=== PATIENT | female | born 1955 | race Two or more races ===

== ENCOUNTER 2021-04-06 07:59 | Emergency (ER) | payer BC, MEDICAID ==
[~2021-04-06] VITALS: Ht 154.9 cm; Wt 76.7 kg
[2021-04-06 08:58] VITALS: BP 152/68
[2021-04-06 10:18] LABS: Urine Bacteria MANY /hpf (None Seen); Urine Blood Negative /uL (Negative); Urine Mucus FEW (None Seen); Urine Specific Gravity 1.021 (1.001-1.035); Urine WBC 47 /hpf (0 - 5)
[2021-04-06] MEDS ORDERED: cefTRIAXone 1GM/50ML D5W 50 ML IV ONE (10:45)
[2021-04-06] MEDS ORDERED: ACETAMINOPHEN 325 MG TAB PO ONE (10:45)
== END 2021-04-06 11:58 | disposition home or self-care (01) ==
LOC: ER 07:59
DX: S39.012A Strain of muscle, fascia and tendon of lower back, initial encounter (principal); S29.012A Strain of muscle and tendon of back wall of thorax, initial encounter; N39.0 Urinary tract infection, site not specified; E11.65 Type 2 diabetes mellitus with hyperglycemia; E78.5 Hyperlipidemia, unspecified; R94.31 Abnormal electrocardiogram [ECG] [EKG]; X50.0XXA Overexertion from strenuous movement or load, initial encounter; Y93.89 Activity, other specified; Y92.89 Other specified places as the place of occurrence of the external cause; Y99.8 Other external cause status
CPT/HCPCS: 72070; 72100; 81001; 93005; 96365; 99285; J0696

== ENCOUNTER 2025-03-01 07:17 | Emergency (ER) | payer BC, MEDICAID ==
[~2025-03-01] VITALS: Ht 154.9 cm; Wt 76.8 kg
[2025-03-01 07:19] VITALS: BP 177/74; PULSE 81; RESP 18; TEMP 98.6; O2SAT 99
--- NOTE | 2025-03-01 07:46 | ED.PDOC ---
Musculoskeletal HPI Comments This is a 69 year old female presenting to the ED with chief complaint of foot wound. Patient reports that she has been dealing with a wound to her left foot between the 4th and 5th toes for the past month, worsening in pain and redness over time. Patient relays that she is diabetic and currently on Metformin and Insulin. Patient denies any fever, chills, leg pain, chest pain, or SOB. Chief Complaint: Lower Extremity Time Seen by MD: 07:44 Primary Care Provider: RAJ Reviewed Notes: Nurses Notes, Medications, Allergies Allergies: Coded Allergies: NO KNOWN ALLERGIES (Unverified , 04/06/21) Home Meds Active Scripts Clindamycin HCl (Clindamycin Hydrochloride) 300 Mg Cap, 300 MG PO TID for 7 Days, #21 CAP Prov:DRU GARCIA MD 03/01/25 Amoxicillin Trihydrate (Amoxicillin) 500 Mg Tab, 1 TAB PO TID for 7 Days, #21 TAB Prov:DRU GARCIA MD 03/01/25 Information Source: Patient Mode of Arrival: Ambulatory Location: Left Extremity Location: Foot Timing: Days Prehospital treatment: None Severity: Moderate Able to Move Extremity: Yes Bear Weight: Fully Pain: Moderate Mechanism: Penetrating Trauma Circumstances: Unknown Onset of Symptoms: Spontaneous Symptoms: Pain, Erythema DVT Risk Factors: NONE Last Tetanus: Unknown Past Medical History PAST MEDICAL HISTORY: DM, High Lipids, HTN Surgical History: ORDER ENTRY CLERK History: No Pertinent ORDER ENTRY CLERK History Family History Family History: Unknown Social History Smoker: Non-Smoker Alcohol: Denies ETOH Use Drugs: Denies Drug Use Lives In: Home Constitutional: denies: chills, diaphoresis, fatigue, fever, malaise, sweats, weakness, others EENTM: denies: blurred vision, double vision, ear bleeding, ear discharge, ear drainage, ear pain, ear ringing, eye pain, eye redness, hearing loss, mouth pain, mouth swelling, nasal discharge, nose bleeding, nose congestion, nose pain, photophobia, tearing, throat pain, throat swelling, voice changes, others Respiratory: denies: cough, hemoptysis, orthopnea, SOB at rest, shortness of breath, SOB with excertion, stridor, wheezing, others Cardiovascular: denies: chest pain, dizzy spells, diaphoresis, Dyspnea on exertion, edema, irregular heart beat, left arm pain, lightheadedness, palpitations, PND, syncope, others Gastrointestinal: denies: abdomen distended, abdominal pain, blood streaked bowels, constipated, diarrhea, dysphagia, difficulty swallowing, hematemesis, melena, nausea, poor appetite, poor fluid intake, rectal bleeding, rectal pain, vomiting, others Genitourinary: denies: abnormal vagina bleeding, burning, dyspareunia, dysuria, flank pain, frequency, hematuria, incontinence, pain, , vagina discharge, urgency, others Neurological: denies: dizziness, fainting, headache, left sided numbness, left sided weakness, numbness, paresthesia, pre-existing deficit, right sided numbness, right sided weakness, seizure, speech problems, tingling, tremors, weakness, others Musculoskeletal: denies: back pain, gout, joint pain, joint swelling, muscle pain, muscle stiffness, neck pain, others Integumetry: reports: wounds; denies: bruises, change in color, change in hair/nails, dryness, laceration, lesions, lumps, rash, others Allergic/Immunocompromised: denies: Difficulty Healing, Frequent Infections, Hives, Itching, others Hematologic/Lymphatic: denies: anemia, blood clots, easy bleeding, easy bruising, swollen glands, others Endocrine: denies: excessive hunger, excessive sweating, excessive thirst, excessive urination, flushing, intolerance to cold, intolerance to heat, unexplained weight gain, unexplained weight loss, others Psychiatric: denies: anxiety, bipolar disorder, depression, hopeless, panic disorder, schizophrenia, sleepless, suicidal, others All Other Systems: Reviewed and Negative Physical Exam General Appearance: Moderate Distress, Normal HEENT: Normal ENT Inspection, Pharynx Normal, TMs Normal Neck: Full Range of Motion, Non-Tender, Normal, Normal Inspection Respiratory: Chest Non-Tender, Lungs Clear, No Accessory Muscle Use, No Respiratory Distress, Normal Breath Sounds Cardiovascular: No Edema, No JVD, No Murmur, No Gallop, Normal Peripheral Pulses, Regular Rate/Rhythm Breast Exam: Deferred Gastrointestinal: No Organomegaly, Non Tender, No Pulsatile Mass, Normal Bowel Sounds, Soft Genitalia: Deferred Pelvic: Deferred Rectal: Deferred Extremities: No calf tenderness, Normal capillary refill, Normal inspection, Normal range of motion, Non-tender, No pedal edema Musculoskeletal : Apperance: Normal Neurologic: Alert, senior data scientist II-XII nml as Tested, No Motor Deficits, Normal Affect, Normal Mood, No Sensory Deficits Cerebellar Function: Normal Reflexes: Normal Skin: Dry, Normal Color, Warm, Wounds (Redness left 5th toe) Peripheral Pulses: 3+ Radial (R), 3+ Radial (L) Lymphatic: No Adenopathy Was a procedure done? Was a procedure done?: No Differential Diagnosis EXT Differential Diagnosis: Cellulitis X-Ray, Labs, Meds, VS Vital Signs Date Time Temp Pulse Resp B/P (MAP) Pulse Ox O2 Delivery O2 Flow Rate FiO2 03/01/25 07:19 98.6 81 18 177/74 99 98.6 Patient alert. Vitals stable. Came in because of swelling with redness of her left foot. Ambulating. Blood pressure slightly elevated. Was given clonidine. Infection of the foot. X-ray of the foot does not show any acute process. Was given prescription of amoxicillin clindamycin antibiotic. [facility] we will make appointment. Explained to the patient. Was told to follow up with her primary care physician. Was told to come back if there is any problem. [place] [id number] Ph: [phone] DIAGNOSTIC IMAGING Diagnostic Imaging Report : [id number] Signed PATIENT: SOHAIL XIE ACCT: [id number] UNIT: [id number] : 1955 LOC: ER ROOM / BED: / AGE / SEX: 69 / F ADM STATUS: REG ER SERVICE [id number] ORDERING PHYSICIAN: DRU GARCIA MD PROCEDURE(s): LFOT2 - L FOOT 2 VIEW XRAY REASON: osteo ORDER NUMBER(s): [id number], ACCESSION NUMBER(s): [id number] CLINICAL INDICATION: osteo TECHNIQUE: XY L FOOT 2 VIEW XRAY Comparison: None FINDINGS/IMPRESSION: : There is no evidence of acute fracture or dislocation. Soft tissues are unremarkable. ATED BY: TAVO MOSQUERA MD DICTATED DATE/TIME: 03/01/25823 SIGNED BY: TAVO MOSQUERA MD SIGNED DATE/TIME: 03/01/25 0824 CC: Images Reviewed?: Images reviewed and evaluated by me Time of 1ST Reevaluation: 08:42 Reevaluation 1ST: Unchanged Patient Education/Counseling: Diagnosis, Treatment Family Education/Counseling: No Family Present Departure 1 Departure Time of Disposition: 08:18 Impression: Primary Impression: Hypertensive urgency Additional Impression: Diabetic foot Disposition: 01 HOME / SELF CARE / HOMELESS Condition: Good e-Prescriptions Clindamycin HCl (Clindamycin Hydrochloride) 300 Mg Cap 300 MG PO TID for 7 Days, #21 CAP Prov: DRU GARCIA MD 03/01/25 Amoxicillin Trihydrate (Amoxicillin) 500 Mg Tab 1 TAB PO TID for 7 Days, #21 TAB Prov: DRU GARCIA MD 03/01/25 Discharged With: Self Critical Care Note Critical Care Time?: No Stability Stability form required: No Heart Score Heart Score: Heart Score Response (Comments) Value History N/A 0 EKG N/A 0 Age N/A 0 Risk Factors N/A 0 Troponin N/A 0 Total 0 I personally scribed for DRU GARCIA MD ([email or web address]) on 03/01/25 at 07:46. Electronically submitted by Bry Sandoval ([email or web address]). I personally scribed for DRU GARCIA MD ([email or web address]) on 03/01/25 at 08:27. Electronically submitted by Bry Sandoval ([email or web address]). DRU GARCIA MD Mar 01, 2025 07:46
[2025-03-01] MEDS ORDERED: CLIN-203 PO (08:20)
[2025-03-01] MEDS ORDERED: AMOX500T3 PO (08:20)
--- NOTE | 2025-03-01 08:26 | DVH ---
CLINICAL INDICATION: osteo TECHNIQUE: XY L FOOT 2 VIEW XRAY Comparison: None FINDINGS/IMPRESSION: : There is no evidence of acute fracture or dislocation. Soft tissues are unremarkable.
== END 2025-03-01 11:41 | disposition home or self-care (01) ==
LOC: ER 07:19
DX: I16.0 Hypertensive urgency (principal); E11.621 Type 2 diabetes mellitus with foot ulcer; E11.9 Type 2 diabetes mellitus without complications; I10 Essential (primary) hypertension; E78.5 Hyperlipidemia, unspecified; Z79.899 Other long term (current) drug therapy; Z79.84 Long term (current) use of oral hypoglycemic drugs; Z79.4 Long term (current) use of insulin
CPT/HCPCS: 73620

== ENCOUNTER 2025-04-07 15:48 | Emergency (ER) | payer OTHER, MEDICAID ==
[~2025-04-07] VITALS: Ht 154.9 cm; Wt 74.8 kg
[~2025-04-07 15:48] MED LIST: AMOX500T3 PO; CLIN-203 PO
[2025-04-07 15:52] VITALS: BP 157/81; PULSE 73; RESP 12; TEMP 97.8; O2SAT 98
--- NOTE | 2025-04-07 17:44 | ED.PDOC ---
History of Present Illness HPI Comments Arabic-speaking F presents with c/c of left foot wound, with associated pain. Significant history of DM and HTN. Patient endorses on 2 month history of wound, with no improvement following completion of multiple antibiotic course. She comments on being referred to ED after being evaluated for wound, again, at urgent care, earlier, due to wound not healing. No further acute symptoms reported. Chief Complaint: Wound Check Time Seen by MD: 17:10 Primary Care Provider: RAJ Allergies: Coded Allergies: NO KNOWN ALLERGIES (Unverified , 04/06/21) Home Meds Active Scripts Clindamycin HCl (Clindamycin Hydrochloride) 300 Mg Cap, 300 MG PO TID for 7 Days, #21 CAP Prov:DRU GARCIA MD 03/01/25 Amoxicillin Trihydrate (Amoxicillin) 500 Mg Tab, 1 TAB PO TID for 7 Days, #21 TAB Prov:DRU GARCIA MD 03/01/25 Mode of Arrival: Ambulatory Past Medical History PAST MEDICAL HISTORY: DM, High Lipids, HTN Surgical History: CLASSICS PROFESSOR History: No Pertinent CLASSICS PROFESSOR History Family History Family History: Unknown Social History Smoker: Non-Smoker Alcohol: Denies ETOH Use Drugs: Denies Drug Use Lives In: Home All Other Systems: Reviewed and Negative (Comprehensive review of systems are negative unless stated in HPI) Physical Exam General Appearance: Moderate Distress, Normal HEENT: Normal ENT Inspection, Pharynx Normal, TMs Normal Neck: Full Range of Motion, Non-Tender, Normal, Normal Inspection Respiratory: Chest Non-Tender, Lungs Clear, No Accessory Muscle Use, No Respiratory Distress, Normal Breath Sounds Cardiovascular: No Edema, No JVD, No Murmur, No Gallop, Normal Peripheral Pulses, Regular Rate/Rhythm Breast Exam: Deferred Gastrointestinal: No Organomegaly, Non Tender, No Pulsatile Mass, Normal Bowel Sounds, Soft Genitalia: Deferred Pelvic: Deferred Rectal: Deferred Extremities: No calf tenderness, Normal capillary refill, Normal inspection, Normal range of motion, Non-tender, No pedal edema Musculoskeletal : Apperance: Normal Neurologic: Alert, correctional supervising cook II-XII nml as Tested, No Motor Deficits, Normal Affect, Normal Mood, No Sensory Deficits Cerebellar Function: Normal Reflexes: Normal Skin: Dry, Normal Color, Warm, Wounds (Left 5th toe redness) Peripheral Pulses: 3+ Radial (R), 3+ Radial (L) Lymphatic: No Adenopathy Was a procedure done? Was a procedure done?: No Differential Dx Considerations may include: Unhealing diabetic wound, MRSA, antibiotic resilient infection, cellulitis, among others X-Ray, Labs, Meds, VS Vital Signs Date Time Temp Pulse Resp B/P (MAP) Pulse Ox O2 Delivery O2 Flow Rate FiO2 04/07/25 15:52 97.8 73 12 157/81 98 97.8 Patient alert. Came in because of left foot redness. Vitals stable. Answering questions. Good vascular. No distress. Mild redness. No acute process. Was given prescription of amoxicillin clindamycin antibiotic. Was told to follow up with her primary care physician. Was told to come back if there is any problem. Time of 1ST Reevaluation: 17:50 Reevaluation 1ST: Improved Patient Education/Counseling: Diagnosis, Treatment Family Education/Counseling: No Family Present SEPSIS Sepsis Screen Date sepsis recognized/suspect: Apr 07, 2025 Time Sepsis recognized/suspect: 1554 Recent Procedure: No On Antibiotic Therapy: No Respiratory Rate >20: No Heart Rate >90: No Temp<36 C (96.8 F) or >38.3 C: No SBP <90 or MAP <65 mmHG: No New Acute Mental Status Change: No Is the patient on CPAP, BIPAP,: No Vital Signs Date Time Temp Pulse Resp B/P (MAP) Pulse Ox O2 Delivery O2 Flow Rate FiO2 04/07/25 15:52 97.8 73 12 157/81 98 97.8 Departure 1 Departure Time of Disposition: 17:55 Impression: Primary Impression: Cellulitis Qualified Codes: L03.116 - Cellulitis of left lower limb Disposition: 01 HOME / SELF CARE / HOMELESS Condition: Good e-Prescriptions Clindamycin Hcl (Clindamycin Hcl) 300 Mg Cap 1 CAP PO TID for 10 Days, #30 CAP Prov: DRU GARCIA MD 04/07/25 Amoxicillin Trihydrate (Amoxicillin) 500 Mg Tab 1 TAB PO TID for 10 Days, #30 TAB Prov: DRU GARCIA MD 04/07/25 Discharged With: Self Critical Care Note Critical Care Time?: No Stability Stability form required: No Heart Score Heart Score: Heart Score Response (Comments) Value History N/A 0 EKG N/A 0 Age N/A 0 Risk Factors N/A 0 Troponin N/A 0 Total 0 I personally scribed for DRU GARCIA MD ([email or web address]) on 04/07/25 at 17:44. Electronically submitted by Gian Short ([email or web address]). DRU GARCIA MD Apr 07, 2025 17:44
[2025-04-07] MEDS ORDERED: CLIN1CAP70 PO (17:56)
== END 2025-04-07 17:56 | disposition home or self-care (01) ==
LOC: ER 15:48
DX: L03.116 Cellulitis of left lower limb (principal); I10 Essential (primary) hypertension; E11.9 Type 2 diabetes mellitus without complications

== ENCOUNTER 2025-04-27 10:46 | Emergency (ER) | payer OTHER, MEDICAID ==
[~2025-04-27] VITALS: Ht 154.9 cm; Wt 74.3 kg
[~2025-04-27 10:46] MED LIST changes: +CLIN1CAP70 PO
--- NOTE | 2025-04-27 11:16 | ED.PDOC ---
Eye-HPI HPI Comments A 69 YEAR OLD FEMALE PRESENTS TO THE ED WITH COMPLAINT OF SORE THROAT. PATIENT STATES SHE HAS BEEN EXPERIENCING A SORE THROAT THAT IS WORSE WHEN SWALLOWING FOR THE PAST 3 DAYS. PATIENT DENIES FEVER, CHILLS, SHORTNESS OF BREATH, CHEST PAIN, ABDOMINAL PAIN, NAUSEA, VOMITING, HEADACHE, OR OTHER COMPLAINTS. NO OTHER SYMPTOMS OR MODIFYING FACTORS AT THIS TIME. PATIENT IS ALERT, ORIENTED X 4, AND HAS STEADY GAIT. Chief Complaint: Sore Throat Time Seen by MD: 10:53 Primary Care Provider: ANTHONY Reviewed Notes: Nurses Notes, Medications, Allergies Allergies: Coded Allergies: NO KNOWN ALLERGIES (Unverified , 04/06/21) Home Meds Active Scripts Ibuprofen (Ibuprofen) 600 Mg Tab, 1 TAB PO TID, #30 TAB Prov:FELIBERTO NOVAK 04/27/25 Azithromycin (Azithromycin) 500 Mg Tab, 1 TAB PO DAILY, #5 TAB Prov:FELIBERTO NOVAK 04/27/25 Clindamycin Hcl (Clindamycin Hcl) 300 Mg Cap, 1 CAP PO TID for 10 Days, #30 CAP Prov:DRU GARCIA MD 04/07/25 Amoxicillin Trihydrate (Amoxicillin) 500 Mg Tab, 1 TAB PO TID for 10 Days, #30 TAB Prov:DRU GARCIA MD 04/07/25 Clindamycin HCl (Clindamycin Hydrochloride) 300 Mg Cap, 300 MG PO TID for 7 Days, #21 CAP Prov:DRU GARCIA MD 03/01/25 Amoxicillin Trihydrate (Amoxicillin) 500 Mg Tab, 1 TAB PO TID for 7 Days, #21 TAB Prov:DRU GARCIA MD 03/01/25 Information Source: Patient Mode of Arrival: Ambulatory Timing: Days Duration: Since onset Prehospital treatment: None Quality: Pain, Red Lids: Normal Conjunctiva: Normal Cornea: Normal Pupils: Normal EOM: Normal Fundus: Normal Slit lamp exam: Normal Anterior chamber: Normal Mouth Location: Pharynx Mouth: Normal ENT Ear Exam: Normal, Normal, Normal Nose: Normal Sinuses: Normal Oropharynx: Tonsillar hypertrophy, Red Onset: Spontaneous Throat Exposed to: None History of: None Last Tetanus: Unknown Modifying factors: Nothing Associated signs and symptoms: Sore Throat Past Medical History PAST MEDICAL HISTORY: DM, High Lipids, HTN Surgical History: ACADEMIC PHYSICIAN History: No Pertinent ACADEMIC PHYSICIAN History Family History Family History: Reviewed,noncontributory to illness Social History Smoker: Non-Smoker Alcohol: Denies ETOH Use Drugs: Denies Drug Use Lives In: Home Constitutional: denies: chills, diaphoresis, fatigue, fever, malaise, sweats, weakness, others EENTM: reports: throat pain, throat swelling; denies: blurred vision, double vision, ear bleeding, ear discharge, ear drainage, ear pain, ear ringing, eye pain, eye redness, hearing loss, mouth pain, mouth swelling, nasal discharge, nose bleeding, nose congestion, nose pain, photophobia, tearing, voice changes, others Respiratory: denies: cough, hemoptysis, orthopnea, SOB at rest, shortness of breath, SOB with excertion, stridor, wheezing, others Cardiovascular: denies: chest pain, dizzy spells, diaphoresis, Dyspnea on exertion, edema, irregular heart beat, left arm pain, lightheadedness, palpitations, PND, syncope, others Gastrointestinal: denies: abdomen distended, abdominal pain, blood streaked bowels, constipated, diarrhea, dysphagia, difficulty swallowing, hematemesis, melena, nausea, poor appetite, poor fluid intake, rectal bleeding, rectal pain, vomiting, others Genitourinary: denies: abnormal vagina bleeding, burning, dyspareunia, dysuria, flank pain, frequency, hematuria, incontinence, pain, , vagina discharge, urgency, others Neurological: denies: dizziness, fainting, headache, left sided numbness, left sided weakness, numbness, paresthesia, pre-existing deficit, right sided numbness, right sided weakness, seizure, speech problems, tingling, tremors, weakness, others Musculoskeletal: denies: back pain, gout, joint pain, joint swelling, muscle pain, muscle stiffness, neck pain, others Integumetry: denies: bruises, change in color, change in hair/nails, dryness, laceration, lesions, lumps, rash, wounds, others Allergic/Immunocompromised: denies: Difficulty Healing, Frequent Infections, Hives, Itching, others Hematologic/Lymphatic: denies: anemia, blood clots, easy bleeding, easy bruising, swollen glands, others Endocrine: denies: excessive hunger, excessive sweating, excessive thirst, excessive urination, flushing, intolerance to cold, intolerance to heat, unexplained weight gain, unexplained weight loss, others Psychiatric: denies: anxiety, bipolar disorder, depression, hopeless, panic disorder, schizophrenia, sleepless, suicidal, others All Other Systems: Reviewed and Negative Physical Exam General Appearance: No Apparent Distress, Normal HEENT: PERRL/EOMI, Pharyngeal Erythema (TONSILLAR SWELLING, NO EXUDATES. ), TMs Normal Neck: Full Range of Motion, Non-Tender, Normal, Normal Inspection Respiratory: Chest Non-Tender, Lungs Clear, No Accessory Muscle Use, No Respiratory Distress, Normal Breath Sounds Cardiovascular: No Edema, No JVD, No Murmur, No Gallop, Normal Peripheral Pulses, Regular Rate/Rhythm Breast Exam: Deferred Gastrointestinal: No Organomegaly, Non Tender, No Pulsatile Mass, Normal Bowel Sounds, Soft Genitalia: Deferred Pelvic: Deferred Rectal: Deferred Extremities: No calf tenderness, Normal capillary refill, Normal inspection, Normal range of motion, Non-tender, No pedal edema Musculoskeletal : Apperance: Normal Neurologic: Alert, chef kitchen manager II-XII nml as Tested, No Motor Deficits, Normal Affect, Normal Mood, No Sensory Deficits Cerebellar Function: Normal Reflexes: Normal Skin: Dry, Normal Color, Warm Peripheral Pulses: 2+ carotid (R), 2+ carotid (L) Lymphatic: No Adenopathy Was a procedure done? Was a procedure done?: No EENT DIFF Eye: Other Ear: Otitis Media, Pharyngitis, Sinusitis Nose: N/A Mouth: N/A Sore Throat: Pharyngitis, Streptococcal, Viral Pharyngitis, URI X-Ray, Labs, Meds, VS Vital Signs Date Time Temp Pulse Resp B/P (MAP) Pulse Ox O2 Delivery O2 Flow Rate FiO2 04/27/25 10:49 98.6 86 18 141/82 96 98.6 Current Medications Medications (Trade) Dose Ordered Sig/Jesus Route Start Time Stop Time Status Last Admin Ceftriaxone Sodium (Rocephin) 1,000 mg ONCE ONCE IM 04/27/25 11:15 04/27/25 11:16 DC 04/27/25 11:27 X-Ray, Labs, Meds, VS Comment EXTERNAL MEDICAL RECORDS REVIEWED: [NONE] INDEPENDENT HISTORIANS: [NONE] SOCIAL DETERMINANTS OF HEALTH: [NONE] LABS ORDERED: NONE REVIEWED AND INTERPRETED RESULTS: NONE IMAGING ORDERED: NONE TREATMENTS ORDERED: ROCEPHIN 1G IM PROCEDURES PERFORMED: NONE CRITICAL CARE TIME: NONE I HAVE DISCUSSED THE PATIENT WITH THE ATTENDING PHYSICIAN DR. BECKER AND HE AGREES WITH THE PATIENT'S PLAN OF CARE AND DISPOSITION. BASED ON HISTORY OF PRESENT ILLNESS, AND PHYSICAL EXAM, PATIENT WILL BE DISCHARGED HOME. DISCUSSED PLAN FOR DISCHARGE HOME WITH RX [AZITHROMYCIN AND MOTRIN 800MG]. MEDICATION WARNINGS GIVEN. SHARED DECISION MAKING: DISCUSSED WITH PATIENT THAT THEIR WORKUP WAS NORMAL. PATIENT INSTRUCTED TO FOLLOW UP WITH PRIMARY CARE PROVIDER IN 1-2 DAYS FOR RE- EVALUATION OF SYMPTOMS. PATIENT VERBALIZES UNDERSTANDING TO RETURN TO ED FOR NEW OR WORSENING SYMPTOMS OR IF FOLLOW UP WITH PCP CANNOT BE OBTAINED. PATIENT FEELS COMFORTABLE GOING HOME AT THIS TIME. ALL QUESTIONS ADDRESSED AT TIME OF DISCHARGE. Time of 1ST Reevaluation: 11:40 Reevaluation 1ST: Improved Patient Education/Counseling: Diagnosis, Treatment, Need For Follow Up Family Education/Counseling: Diagnosis, Treatment, Need For Follow Up Medical Screening: No EMC Exist At This Time SEPSIS Sepsis Screen Date sepsis recognized/suspect: Apr 27, 2025 Time Sepsis recognized/suspect: 1050 Recent Procedure: No On Antibiotic Therapy: No Respiratory Rate >20: No Heart Rate >90: No Temp<36 C (96.8 F) or >38.3 C: No SBP <90 or MAP <65 mmHG: No New Acute Mental Status Change: No Is the patient on CPAP, BIPAP,: No Vital Signs Date Time Temp Pulse Resp B/P (MAP) Pulse Ox O2 Delivery O2 Flow Rate FiO2 04/27/25 10:49 98.6 86 18 141/82 96 98.6 Medications Medications Dose Ordered Sig/Jesus Route Start Time Stop Time Status Last Admin Dose Admin Ceftriaxone Sodium 1,000 mg ONCE ONCE IM 04/27/25 11:15 04/27/25 11:16 DC 04/27/25 11:27 Departure 1 Departure Time of Disposition: 11:40 Impression: Primary Impression: Acute tonsillitis Qualified Codes: J03.90 - Acute tonsillitis, unspecified Disposition: HOME / SELF CARE / HOMELESS Condition: Stable Additional Instructions: FOLLOW UP WITH PCP IN 1-2 DAYS, TAKE MEDICATIONS PRESCRIBED. RETURN TO ED FOR ANY NEW OR WORSENING SYMPTOMS. e-Prescriptions Ibuprofen (Ibuprofen) 600 Mg Tab 1 TAB PO TID, #30 TAB Prov: FELIBERTO NOVAK 04/27/25 Azithromycin (Azithromycin) 500 Mg Tab 1 TAB PO DAILY, #5 TAB Prov: FELIBERTO NOVAK 04/27/25 Discharged With: Self Critical Care Note Critical Care Time?: No Stability Stability form required: No I personally scribed for FELIBERTO NOVAK ([email or web address]) on 04/27/25 at 11:16. E lectronically submitted by Emmett Corona ([email or web address]). I personally scribed for FELIBERTO NOVAK ([email or web address]) on 04/27/25 at 11:20. E lectronically submitted by Génesis Sims ([email or web address]). I personally scribed for FELIBERTO NOVAK ([email or web address]) on 04/27/25 at 11:28. Electronically submitted by Génesis Sims ([email or web address]). I personally scribed for FELIBERTO NOVAK ([email or web address]) on 04/27/25 at 11:29. Electronically submitted by Génesis Sims ([email or web address]). FELIBERTO NOVAK Apr 27, 2025 11:16
[2025-04-27] MEDS: cefTRIAXone SOD 1,000 MG VL IM ONE (11:27)
[2025-04-27] MEDS ORDERED: AZIT500T66 PO (11:38)
[2025-04-27] MEDS ORDERED: IBUP-1454 PO (11:38)
[2025-04-27 11:45] VITALS: BP 122/76; PULSE 84; RESP 18; TEMP 98.9; O2SAT 97
== END 2025-04-27 11:49 | disposition home or self-care (01) ==
LOC: ER 10:46
DX: J03.90 Acute tonsillitis, unspecified (principal); E11.9 Type 2 diabetes mellitus without complications; I10 Essential (primary) hypertension; Z79.899 Other long term (current) drug therapy
CPT/HCPCS: 96372; 99283; J0696